=== PATIENT | male | born 1995 | race Two or more races ===

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

== ENCOUNTER 2017-10-08 17:14 | Emergency (ER) | payer SELFPAY ==
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
[2017-10-08 20:12] VITALS: BP 121/74
== END 2017-10-08 20:11 | disposition home or self-care (01) ==
LOC: ED 17:14
DX: S01.112A Laceration without foreign body of left eyelid and periocular area, initial encounter (principal); W50.0XXA Accidental hit or strike by another person, initial encounter; Y93.67 Activity, basketball; Y92.39 Other specified sports and athletic area as the place of occurrence of the external cause
CPT/HCPCS: 12011; 99282

== ENCOUNTER 2018-04-16 11:23 | Emergency (ER) | payer SELFPAY ==
--- NOTE | 2018-04-16 14:04 | ED ---
Throat Pain/Nasal Congestion - HPI Summary HPI Summary: Pt presents w/ concern with tongue changes x 2-3 days. Red with white edges. Denies pain, soreness, pain, itching, etc at rest or with eating/drinking. Wondering if this is from nutritional deficiency as he admits he doesn't eat much and has been losing weight d/t decreased appetite which he reports is from depression. no known h/o nutritional deficiency but has never been tested. Also denies h/o thrush, HIV, oral sores, strep throat, mono, etc. Upon further investigation, pt reports "depression" x 6-7 yrs - self dx'd - just started talking about it with friends/family -states he's ready to seek counseling. Admits there are days when he thinks about "not being around" but denies SI and states "I would never take my life or harm myself - I could never do that". Keeps in touch with his mom who is concerned about him. Fatigue in general past year which he feels is due to depression and lack of eating properly. H/o heartburn sx but non recently. Reports he's taken OTC GERD medication in the past - doesn't use this often as he doesn't have sx often. Admits he vomits when he's anxious but this is only a couple of times a year - denies hematemesis, coffee ground emesis. Denies fever, chills, URI sx, diarrhea , skin changes, BENSON, neuro deficits. Admits he's had Lt sided chest pain on/off during the year but has had w/u multiple times and every time they tell him everything looks fine. No pain as of late. H/o sexual activity - has been tested w/ each new partner - no sx and no concerns for STD (bacterial or viral) at this time. Denies use of IV drugs. - History of Current Complaint Chief Complaint: UCGeneralIllness Time Seen by Provider: 04/16/18 12:37 Hx Obtained From: Patient - Allergies/Home Medications Allergies/Adverse Reactions: Allergies Allergy/AdvReac Type Severity Reaction Status Date / Time pollen extracts Allergy Congestion Verified 04/16/18 11:40 shellfish derived Allergy Swelling Verified 04/16/18 11:40 Of Face,Lips,& Throat PMH/Surg Hx/FS Hx/Imm Hx Previously Healthy: No - depressed past 6-7 yrs Endocrine/Hematology History: Denies: Hx Anticoagulant Therapy, Hx Diabetes, Hx Thyroid Disease, Autoimmune Disease Cardiovascular History: Denies: Hx Congenital Heart Disease, Hx Hypertension, Hx Pacemaker/ICD, Hx Rheumatic Fever Respiratory History: Reports: Hx Asthma - well controlled Denies: Hx Chronic Obstructive Pulmonary Disease (COPD) History: Denies: Hx Renal Disease Neurological History: Denies: Hx Dementia, Hx Seizures Psychiatric History: Reports: Hx Depression - self diagnosed Denies: Hx Suicide Attempt, Hx Substance Abuse - Surgical History Surgery Procedure, Year, and Place: None - Immunization History Date of Tetanus Vaccine: never Date of Influenza Vaccine: never Infectious Disease History: No Infectious Disease History: Denies: Hx Clostridium Difficile, Hx Hepatitis, Hx Human Immunodeficiency Virus (HIV), Hx of Known/Suspected MRSA, Hx Shingles, Hx Tuberculosis, Hx Known/ Suspected VRE, Hx Known/Suspected VRSA, History Other Infectious Disease, Traveled Outside the [place] in Last 30 Days - Family History Known Family History: Positive: None Negative: Cardiac Disease, Hypertension, Diabetes - Social History Occupation: Employed Full-time - [employer] Lives: With Family Alcohol Use: Rare Hx Substance Use: No Substance Use Type: Reports: Marijuana Hx Tobacco Use: No Smoking Status (MU): Never Smoked Tobacco Review of Systems Positive: Fatigue - chronic. Negative: Fever, Chills Eyes: Negative ENT: Other - tongue changes Negative: Epistaxis, Dental Pain, Sore Throat, Ear Ache, Nasal Discharge Cardiovascular: Negative Respiratory: Negative Gastrointestinal: Negative Genitourinary: Negative Negative: burning, dysuria, discharge, frequency, flank pain, hematuria, incontinence, pain, urgency Musculoskeletal: Other - muscle soreness - continues to workout despite fatigue and poor nutrition Skin: Negative Neurological: Negative Positive: Depressed - no patric SI or plan All Other Systems Reviewed And Are Negative: Yes Physical Exam Triage Information Reviewed: Yes Vital Signs On Initial Exam: Initial Vitals Temp Pulse Resp BP Pulse Ox 99.4 F 64 18 115/67 100 04/16/18 11:41 04/16/18 11:41 04/16/18 11:41 04/16/18 11:41 04/16/18 11:41 Vital Signs Reviewed: Yes Appearance: Positive: Well-Appearing, No Pain Distress, Well-Nourished - good muscle tone, appears well nourished however reports are concerning for poor nutrition Skin: Positive: Warm, Skin Color Reflects Adequate Perfusion, Dry - no rash, no generalized pallor Head/Face: Positive: Normal Head/Face Inspection Eyes: Positive: Normal, EOMI, ALISON, Conjunctiva Clear. Negative: Conjunctiva Inflammed, Discharge ENT: Positive: Normal ENT inspection, Hearing grossly normal, Pharynx normal, TMs normal, Uvula midline, Other. Negative: Nasal congestion, Nasal drainage, Tonsillar swelling, Tonsillar exudate, Trismus, Muffled voice, Hoarse voice, Dental tenderness, Sinus tenderness Dental: Negative: Abscess @ Neck: Positive: Supple, Nontender, No Lymphadenopathy Respiratory/Lung Sounds: Positive: Clear to Auscultation, Breath Sounds Present. Negative: Rales, Rhonchi, Stridor, Tracheal Deviation, Wheezes Cardiovascular: Positive: Normal, RRR, S1, S2. Negative: Murmur, Rub, Leg Edema Left, Leg Edema Right Abdomen Description: Positive: Nontender, No Organomegaly, Soft. Negative: CVA Tenderness (R), CVA Tenderness (L), Distended, Guarding, Hernia @ Bowel Sounds: Positive: Present Male Genital Exam: Positive: Other - deferred Musculoskeletal: Positive: Normal, Strength/ROM Intact Neurological: Positive: Normal, Sensory/Motor Intact, Alert, Oriented to Person Place, Time, CN Intact II-III, Reflexes Intact Psychiatric: Positive: Normal - pt in good spirits, appears hopeful to get better, forward thinking in that he plans on continuing to talk about his issues and get medical follow-up care this week - denies SI or plan - no HI AVPU Assessment: Alert - [place] Coma Scale Best Eye Response: 4 - Spontaneous Best Motor Response: 6 - Obeys Commands Best Verbal Response: 5 - Oriented Coma Scale Total: 15 Diagnostics - Vital Signs Vital Signs Temp Pulse Resp BP Pulse Ox 04/16/18 11:41 99.4 F 64 18 115/67 100 - Laboratory Lab Statement: Any lab studies that have been ordered have been reviewed, and results considered in the medical decision making process. EENT Course/Dx - Course Course Of Treatment: Given pt's lack of symptoms with tongue changes and chronic h/o manourishment, advised close f/u w/ PCP for further evaluation, ie blood testing. Suggested trying easy to digest foods to improve nutrition and possibly mood by increasing seratonin levels. He is open to this. Offered thrush and strep testing today but pt declined. Agrees to f/u w/ PCP (either [facility] or [facility]) and Mental Health services. He is aware he may return to for basic testing (reviewed with him today) or go to ED if worse in the meantime for more comprehensive testing. He is aware of both medical and mental services available to him there and agrees w/ plan. - Diagnoses Provider Diagnoses: Tongue abnormality, Depression, Fatigue Discharge - Sign-Out/Discharge Documenting (check all that apply): Patient Departure All imaging exams completed and their final reports reviewed: No Studies - Discharge Plan Condition: Stable Disposition: HOME Patient Education Materials: Malnutrition (DC), Depression (ED), Fatigue (ED) Referrals: [facility] [Outside] [facility] [[employer], APPLICATION, OTHER] - Additional Instructions: Your symptoms require more testing, evaluation and treatment based on the extent and time frame. It is important that you follow-up with a PCP for your medical symptoms and a mental health provider for your depression. Call your insurance for best results on referrals. You have been provided with 2 options for PCP (1 takes health insurance, the other will see you if you do not have health insurance). You've also been provided with a local mental health resource. Call today to schedule appointments. [facility] [address] [place] [address] CLINIC: OFFICE: *If in the meantime, you develop acute symptoms such as pain, fever, difficulty breathing or swallowing, go to the ED You may also start consuming easy to digest foods in an effort to improve your energy and mood. - Billing Disposition and Condition Condition: STABLE Disposition: Home
[2018-04-16 14:09] VITALS: BP 124/70
== END 2018-04-16 14:18 | disposition home or self-care (01) ==
LOC: UCEAST 11:23
DX: K14.8 Other diseases of tongue (principal); F32.9 Major depressive disorder, single episode, unspecified; R53.83 Other fatigue
CPT/HCPCS: 99211; G0463